=== PATIENT | female | born 1935 | race Hispanic/Latino ===

== ENCOUNTER 2018-09-28 08:46 | Emergency (ER) | payer MEDICARE ==
[2018-09-28 08:54] VITALS: BMI 21.2
--- NOTE | 2018-09-28 09:16 | ED PDOC ---
HPI: Abdomen Time Seen by Provider: 09/28/18 09:15 Chief Complaint (Nursing): Abdominal Pain Chief Complaint (Provider): abdominal pain History Per: Patient, Family Additional Complaint(s): 83-year-old female presents with right-sided flank pain and right lower quadrant pain that started earlier this morning. Patient has had nausea with no vomiting. She denies any known fever and has had chills. Patient rates pain as a 7 out of 10 upon arrival. She has also noticed slight hesitancy with urination. PMD: Dr. Jacoby Hernández Past Medical History Reviewed: Historical Data, Nursing Documentation, Vital Signs Vital Signs: Last Vital Signs Temp 97.4 F L 09/28/18 08:53 Pulse 82 09/28/18 08:53 Resp BP 112/64 09/28/18 08:53 Pulse Ox 100 09/28/18 08:53 - Medical History PMH: HTN - Surgical History Surgical History: Appendectomy, Cholecystectomy Other surgeries: hysterectomy - Family History Family History: States: No Known Family Hx - Living Arrangements Living Arrangements: With Family - Social History Current smoker - smoking cessation education provided: No Alcohol: None Drugs: Denies - Home Medications Home Medications: Ambulatory Orders Medication Instructions Recorded Dicyclomine [Bentyl] 10 mg PO BID 09/28/18 Ibuprofen [Motrin] 400 mg PO QID PRN #20 tab 09/28/18 LORazepam [Ativan] 0.5 mg PO HS PRN 09/28/18 Metoprolol Succinate 25 mg PO DAILY 09/28/18 Nitrofurantoin Macrocrystals 100 mg PO BID #14 cap 09/28/18 [Macrobid] Rosuvastatin Calcium [Crestor] 10 mg PO HS 09/28/18 Spironolactone [Aldactone] 25 mg PO DAILY 09/28/18 Sucralfate [Carafate Tab] 1 gm PO TID 09/28/18 amLODIPine [Norvasc] 5 mg PO DAILY 09/28/18 - Allergies Allergies/Adverse Reactions: Allergies Allergy/AdvReac Type Severity Reaction Status Date / Time iodine Allergy Verified 09/17/16 21:00 Sulfa (Sulfonamide Allergy Verified 09/17/16 21:00 Antibiotics) trimethoprim Allergy Verified 09/17/16 21:00 SEAFOOD Allergy Uncoded 09/17/16 21:00 Review of Systems ROS Statement: Except As Marked, All Systems Reviewed And Found Negative Constitutional: Negative for: Fever, Chills, Weakness Cardiovascular: Negative for: Chest Pain Respiratory: Negative for: Cough Gastrointestinal: Positive for: Nausea, Abdominal Pain. Negative for: Vomiting, Diarrhea, Constipation, Rectal Pain Genitourinary Female: Positive for: Other (hesitancy). Negative for: Dysuria Neurological: Negative for: Headache, Dizziness Physical Exam - Reviewed Nursing Documentation Reviewed: Yes Vital Signs Reviewed: Yes - Physical Exam Appears: Positive for: Well, Non-toxic, No Acute Distress Skin: Positive for: Normal Color. Negative for: Rash Eye Exam: Positive for: Normal appearance Cardiovascular/Chest: Positive for: Regular Rate, Rhythm Respiratory: Positive for: Normal Breath Sounds Gastrointestinal/Abdominal: Positive for: Tenderness (Moderate tenderness right lower quadrant, no distention, rebound, mild guarding noted, normal active bowel sounds in all 4 quadrants) Back: Positive for: R CVA Tenderness. Negative for: L CVA Tenderness, Vertebral Tenderness Extremity: Positive for: Normal ROM Neurologic/Psych: Positive for: Alert, Oriented - Laboratory Results Result Diagrams: 09/28/18 09:40 09/28/18 09:40 Urine dip results: Positive for: Blood (trace). Negative for: Leukocyte Esterase, Nitrate, Ketones, Glucose, Bilirubin, Protein - ECG O2 Sat by Pulse Oximetry: 100 Pulse Ox Interpretation: Normal Medical Decision Making Medical Decision Makin83 y/o with abd pain and right flank pain Plan: Urine dip UA Urine culture CBC CMP Lipase CT abd and pelvis without contrast IVF IV zofran 4 mg IV toradol 15 mg 11:40 am - Patient states she still has pain despite Toradol given. She does not want any further pain medication at this time and prefers to wait for CAT scan results. CT: FINDINGS: LOWER THORAX: Limited bilateral basilar linear atelectasis or fibrosis identified. Small hiatal hernia reiterated. LIVER: Unremarkable. No gross lesion or ductal dilatation. GALLBLADDER AND BILE DUCTS: Prior cholecystectomy reiterated. PANCREAS: Unremarkable. No gross lesion or ductal dilatation. SPLEEN: Unremarkable. ADRENALS: Unremarkable. No mass. KIDNEYS AND URETERS: There is mild bilateral hydronephrosis and borderline hydroureter caused by likely E hydrostatic pressure from distended urinary bladder. No radiodense uro lithiasis. Distal bilateral ureteral strictures or lucent calculi are not excluded but not favored. Mildly heterogeneous density of the bilateral kidneys is reiterated but is poorly characterized due lack of intravenous contrast. 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 Nonaneurysmal abdominal aortic calcific atherosclerotic changes are identified. BOWEL: Evaluation of the gastrointestinal tract is limited due to the lack of oral contrast administration. No obstruction. Extensive colonic diverticular disease seen with scattered diverticula throughout the colon but most concentrated at the distal descending abdomen and sigmoid segments without acute changes. APPENDIX: Not clearly identified. No CT evidence of appendicitis at this time. PERITONEUM: Unremarkable. No free fluid. No free air. LYMPH NODES: Unremarkable. No enlarged lymph nodes. BLADDER: The urinary bladder is markedly distended with thin wall but no radiodense urolithiasis in the lumen. REPRODUCTIVE: Prior hysterectomy. BONES: No acute fracture. OTHER FINDINGS: None. IMPRESSION: 1. Mild bilateral hydronephrosis and borderline hydroureter likely as a function of hydrostatic affect from marked urinary bladder d istension. Clinically correlate as other etiologies are possible as discussed above. 2. Diffuse colonic diverticulosis without diverticulitis. No bowel obstruction. 3. Interval infrarenal abdominal aortic stent deployment without obvious pattern of recurrent dissection identified at this time. No abdominal aortic aneurysm evident. Calcified atherosclerotic changes seen within the aorta. 4. Other lesser findings as discussed above in this noncontrast CT. 1:30 pm: Patient agreed to second dose of Toradol, 15 mg IV Toradol. PO tylenol also ordered by patient refused this. Patient aware of all diagnostic testing results, all questions answered. Bladder scan completed at bedside demonstrates empty bladder. Case was d/w in detail with ED attending Dr. Alcantara. Patient will be discharged with rx macrobid and motrin. Patient was instructed to rest and drink plenty of fluids. Advise PMD follow-up on Sunday. Patient also aware she can return any time if acutely worse. Disposition - Clinical Impression Clinical Impression: Cystitis - Patient ED Disposition Is Patient to be Admitted: No Counseled Patient/Family Regarding: Studies Performed, Diagnosis, Need For Followup, Rx Given - Disposition Referrals: aJcoby Hernández MD [IM] - Disposition: Routine/Home Disposition Time: 13:34 Condition: STABLE Additional Instructions: Take prescription meds as directed. Drink plenty of fluids and get rest. Follow-up Sunday with primary doctor or return to ED any time if acutely worse. Prescriptions: Ibuprofen [Motrin] 400 mg PO QID PRN #20 tab PRN Reason: Pain, Moderate (4-7) Nitrofurantoin Macrocrystals [Macrobid] 100 mg PO BID #14 cap Instructions: Acute Cystitis (DC) Forms: [employer] (Bangladeshi) Results - Lab Results Lab Results: 09/28/18 09/28/18 09/28/18 09:40 09:40 09:40 WBC 5.0 RBC 3.52 L Hgb 11.2 L Hct 33.5 L MCV 95.0 MCH 31.9 H MCHC 33.5 RDW 15.0 H Plt Count 309 MPV 8.4 Neut % (Auto) 66.1 Lymph % (Auto) 24.1 [place] % (Auto) 7.5 Eos % (Auto) 1.9 Baso % (Auto) 0.4 Neut # (Auto) 3.3 Lymph # (Auto) 1.2 [place] # (Auto) 0.4 Eos # (Auto) 0.1 Baso # (Auto) 0.0 Sodium 140 Potassium 3.9 Chloride 103 Carbon Dioxide 26 Anion Gap 15 BUN 16 Creatinine 1.1 Est GFR ( Amer) 57 Est GFR (Non-Af Amer) 47 Random Glucose 98 Calcium 9.8 Total Bilirubin 0.5 AST 33 ALT 42 Alkaline Phosphatase 102 Total Protein 7.2 Albumin 4.1 Globulin 3.1 Albumin/Globulin Ratio 1.3 Lipase 51 Urine Color Yellow Urine Clarity Slighty-cloudy Urine pH 8.0 Ur Specific [place] 1.012 Urine Protein 30 Urine Glucose (UA) Neg Urine Ketones Trace Urine Blood Negative Urine Nitrate Negative Urine Bilirubin Negative Urine Urobilinogen 0.2-1.0 Ur Leukocyte Esterase Neg Urine RBC (Auto) 2 Urine Microscopic WBC 2 Ur Squamous Epith Cells < 1 Urine Bacteria Rare
[2018-09-28] MEDS ORDERED: Sodium Chloride 0.9% 1,000 ML IV STA (09:33)
[2018-09-28 09:49] LABS: BASO % 0.4 % (0.0-2.0); EOS # 0.1 K/uL (0.0-0.7); EOS % 1.9 % (0.0-4.0); HEMOGLOBIN 11.2 g/dL (12.0-16.0); LYMPH # 1.2 K/uL (1.0-4.3); LYMPH % 24.1 % (20.0-40.0); MEAN CORPUSCULAR HEMOGLOBIN 31.9 pg (27.0-31.0); MEAN CORPUSCULAR HGB CONC 33.5 g/dL (33.0-37.0); MEAN PLATELET VOLUME 8.4 fl (7.2-11.7); MONO # 0.4 K/uL (0.0-0.8); MONO % 7.5 % (0.0-10.0); NEUT # 3.3 K/uL (1.8-7.0); NEUT % 66.1 % (50.0-75.0); NRBC % 0.1 % (0.0-0.0); RBC 3.52 Mil/uL (3.80-5.20)
[2018-09-28 10:04] LABS: ALB/GLOB RATIO 1.3 (1.0-2.1); ALBUMIN 4.1 g/dL (3.5-5.0); CALCIUM 9.8 mg/dL (8.4-10.2)
[2018-09-28 10:05] LABS: SQUAMOUS EPITHIAL < 1 /hpf (0-5); URINE BACTERIA RARE (<OCC); URINE BILIRUBIN NEGATIVE (NEGATIVE); URINE BLOOD NEGATIVE (NEGATIVE); URINE CLARITY SLIGHTY-CLOUDY (Clear); URINE COLOR YELLOW (YELLOW); URINE GLUCOSE (UA) NEG (Normal); URINE LEUKOCYTE ESTERASE NEG Leu/uL (Negative); URINE PROTEIN 30 mg/dL (NEGATIVE); URINE UROBILINOGEN 0.2-1.0 mg/dL (0.2-1.0)
[2018-09-28 11:46] VITALS: RESP 18
--- NOTE | 2018-09-28 11:48 | CT ---
Date of service: 09/28/2018 PROCEDURE: CT Abdomen and Pelvis without intravenous contrast HISTORY: right flank and abd pain COMPARISON: Abdomen pelvis CT with contrast 10/04/2014. TECHNIQUE: Helical CT of the abdomen and pelvis was performed without oral or intravenous contrast as per referring physician request. Coronal and sagittal reformats were generated. Contrast dose: None Radiation dose: Total exam DLP = 282.79 mGy-cm. This CT exam was performed using one or more of the following dose reduction techniques: Automated exposure control, adjustment of the mA and/or kV according to patient size, and/or use of iterative reconstruction technique. FINDINGS: LOWER THORAX: Limited bilateral basilar linear atelectasis or fibrosis identified. Small hiatal hernia reiterated. LIVER: Unremarkable. No gross lesion or ductal dilatation. GALLBLADDER AND BILE DUCTS: Prior cholecystectomy reiterated. PANCREAS: Unremarkable. No gross lesion or ductal dilatation. SPLEEN: Unremarkable. ADRENALS: Unremarkable. No mass. KIDNEYS AND URETERS: There is mild bilateral hydronephrosis and borderline hydroureter caused by likely E hydrostatic pressure from distended urinary bladder. No radiodense urolithiasis. Distal bilateral ureteral strictures or lucent calculi are not excluded but not favored. Mildly heterogeneous density of the bilateral kidneys is reiterated but is poorly characterized due lack of intravenous contrast. 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 Nonaneurysmal abdominal aortic calcific atherosclerotic changes are identified. BOWEL: Evaluation of the gastrointestinal tract is limited due to the lack of oral contrast administration. . No obstruction. Extensive colonic diverticular disease seen with scattered diverticula throughout the colon but most concentrated at the distal descending abdomen and sigmoid segments without acute changes. APPENDIX: Not clearly identified. No CT evidence of appendicitis at this time.. PERITONEUM: Unremarkable. No free fluid. No free air. LYMPH NODES: Unremarkable. No enlarged lymph nodes. BLADDER: The urinary bladder is markedly distended with thin wall but no radiodense urolithiasis in the lumen. REPRODUCTIVE: Prior hysterectomy. BONES: No acute fracture. OTHER FINDINGS: None. IMPRESSION: 1. Mild bilateral hydronephrosis and borderline hydroureter likely as a function of hydrostatic affect from marked urinary bladder distension. Clinically correlate as other etiologies are possible as discussed above. 2. Diffuse colonic diverticulosis without diverticulitis. No bowel obstruction. 3. Interval infrarenal abdominal aortic stent deployment without obvious pattern of recurrent dissection identified at this time. No abdominal aortic aneurysm evident. Calcified atherosclerotic changes seen within the aorta. 4. Other lesser findings as discussed above in this noncontrast CT.
[2018-09-28 14:36] VITALS: BP 162/73; PULSE 86; TEMP 98.8
[2018-09-28 14:44] VITALS: O2SAT 100
== END 2018-09-28 15:00 | disposition home or self-care (01) ==
LOC: H.ER 08:46
DX: N30.90 Cystitis, unspecified without hematuria (principal); I10 Essential (primary) hypertension; Z79.899 Other long term (current) drug therapy
CPT/HCPCS: 74176; 80053; 81003; 83690; 85025; 87086; 96361; 96374; 96376; 99283; J1885; J7030